=== PATIENT | male | born 1970 | race Asian ===

== ENCOUNTER 2021-08-07 06:50 | Emergency (ER) | payer BC ==
[~2021-08-07] VITALS: Ht 170.2 cm; Wt 90.7 kg
--- NOTE | 2021-08-07 07:00 | NUR ---
Pt to bed 8 for evaluation. Safety precautions in place.
[2021-08-07 07:05] VITALS: BP_SYST 130
[2021-08-07] MEDS ORDERED: SOM350 PO ×2 (07:11→09:45)
--- NOTE | 2021-08-07 07:30 | NUR ---
Pt came from work with c/o neck pain that radiates to the left shoulder and left hand. Pt states the pain started 3 weeks ago and rates the pain a 10/10. Pt denies chest pain, has full ROM in the neck, left shoulder/arm and left hand. Pt has been using ibuprofen at home for pain and it has not been helping. He reports no past medical history. A&O x 4, NKA, and follows simple commands. Safety precautions in place.
[2021-08-07] MEDS ORDERED: KETOROLAC TROMETHAMINE 60 MG/2 ML VIAL IM ONE (09:00)
--- NOTE | 2021-08-07 09:29 | NUR ---
PT to MRI accompanied by staff.
--- NOTE | 2021-08-07 09:29 | NUR ---
MRI checklist completed.
--- NOTE | 2021-08-07 09:40 | NUR ---
PT back from MRI accompanied by staff. PT states that MRI was not completed due to pain while lying down. Pt now states that he does not want the MRI.
[2021-08-07] MEDS ORDERED: HYDR2TAB4 PO (09:45)
[2021-08-07 10:07] VITALS: BP_SYST 130
--- NOTE | 2021-08-07 10:07 | NUR ---
Patient given written and verbal discharge instructions and verbalizes understanding. ER Dr. Shirley discussed with patient the results and treatment provided. Patient in stable condition. ID arm band removed. Rx of dilaudid and carisoprodol given. Patient eudcated to not drive while taking both pain medications and to only take them at night. Patient educated on pain management and to follow up with PMD. Pain Scale 3. Opportunity for questions provided and answered. Medication side effect fact sheet provided.
== END 2021-08-07 10:07 | disposition home or self-care (01) ==
LOC: SED 06:50
DX: M54.12 Radiculopathy, cervical region (principal); M47.812 Spondylosis without myelopathy or radiculopathy, cervical region; I10 Essential (primary) hypertension; F17.210 Nicotine dependence, cigarettes, uncomplicated; Z79.899 Other long term (current) drug therapy
CPT/HCPCS: 72125; 76376; 96372; 99284; J1885